=== PATIENT | male | born 1990 | race American Indian/Alaskan Native ===

== ENCOUNTER 2018-05-25 14:26 | Emergency (ER) | payer OTHER ==
[2018-05-25] MEDS ORDERED: ASPIRIN PO ONE (14:46)
[2018-05-25 15:04] LABS: Basophils # (Auto) 0.1 K/mm3 (0.0-0.1); Basophils % (Auto) 0.7 % (0.0-1.8); Eosinophils % (Auto) 0.2 % (0.0-4.3); Hematocrit 47.5 % (35.5-45.6); Hemoglobin 15.7 gm/dl (11.8-15.2); Lymphocytes # (Auto) 2.9 K/mm3 (1.2-5.4); Lymphocytes % (Auto) 27.7 % (13.4-35.0); Mean Corpuscular HGB Conc 33 % (32-34); Mean Corpuscular Hemoglobin 30 pg (28-32); Mean Corpuscular Volume 91 fl (84-94); Monocytes # (Auto) 0.9 K/mm3 (0.0-0.8); Monocytes % (Auto) 8.6 % (0.0-7.3); Platelet Count 219 K/mm3 (140-440); Red Blood Count 5.25 M/mm3 (3.65-5.03); Red Cell Distribution Width 14.3 % (13.2-15.2)
[2018-05-25 15:24] LABS: BUN/Creatinine Ratio 12; Blood Urea Nitrogen 14 mg/dL (9-20); Calcium 9.7 mg/dL (8.4-10.2); Hemolysis Index 43
[2018-05-25] MEDS ORDERED: TYLENOL PO ONE (17:17)
[2018-05-25] MEDS ORDERED: K-DUR PO ONE (17:17)
[2018-05-25] MEDS ORDERED: PEPCID IV ONE (17:17)
[2018-05-25] MEDS ORDERED: ALUM-MAG HYDROX-SIMETH 200-200-20MG/5ML PO ONE (17:17)
--- NOTE | 2018-05-25 17:18 | Emergency Department Report ---
ED General Adult HPI - General Chief complaint: Chest Pain Stated complaint: CHEST PAIN Time Seen by Provider: 05/25/18 17:07 Source: patient, family, EMS (ems notes not available at time of chart dictation), RN notes reviewed, old records reviewed Mode of arrival: Stretcher Limitations: No Limitations - History of Present Illness Initial comments: This is a 27-year-old gentleman who is not known to this provider previously. His past medical history includes hypertension, obesity, reported congestive heart failure (no documented ejection fraction) presumed Nyla-High tear, and asthma as well as cannabis abuse. The patient presents to the ER with a complaint of abdominal cramping and chest pain. His symptoms started at around 11:00 this morning. The abdominal cramping is in the bilateral lower quadrants and radiates up to the epigastric region. The epigastric pain does not radiate to the back, arms or neck. There is no diaphoresis. There is chronic shortness of breath. He denies leg pain, leg swelling, hematemesis, testicular pain, bright red blood per rectum, the patient also denies DVT, pulmonary embolus risk factors. He's had intermittent aspirin over the past week, but no cocaine, and indicates his consumption. he does not feel like he is constipated. He does not recall the name of his primary chicken picker. -: Gradual, hour(s) Location: chest, abdomen Radiation: abdomen Severity scale (0 -10): 8 Quality: aching Consistency: intermittent Improves with: none Worsens with: none Associated Symptoms: chest pain, malaise, shortness of breath, weakness. denies : confusion, cough, diaphoresis, fever/chills, headaches, loss of appetite, nausea/vomiting, rash, seizure, syncope - Related Data Previous Rx's Medication Instructions Recorded Last Taken Type ALBUTEROL Inhaler [ProAir HFA 2 puff IH QID PRN #1 inhalation 03/26/16 Unknown Rx Inhaler] Albuterol *Only Ed* [Proventil 2.5 mg IH QIDRT PRN #30 nebu 03/26/16 Unknown Rx 0.5% NEBS] Furosemide [Lasix TAB] 40 mg PO QDAY #30 tablet 03/26/16 Unknown Rx Acetaminophen [Tylenol Arthritis] 650 mg PO Q6HR PRN #30 tablet.er 05/25/18 Unknown Rx Albuterol Sulfate [Proair 90 mcg IH Q4HR PRN #2 aer.pow.ba 05/25/18 Unknown Rx Respiclick] Benzonatate [Tessalon Perles] 100 mg PO Q8HR PRN #30 capsule 05/25/18 Unknown Rx Ibuprofen [Motrin] 600 mg PO Q8H PRN #30 tablet 05/25/18 Unknown Rx Levofloxacin [Levaquin] 750 mg PO QDAY #6 tablet 05/25/18 Unknown Rx Metoclopramide [Reglan] 10 mg PO QID PRN #20 tab 05/25/18 Unknown Rx Allergies Allergy/AdvReac Type Severity Reaction Status Date / Time No Known Allergies Allergy Unverified 03/23/16 10:49 ED Review of Systems ROS: Stated complaint: CHEST PAIN Other details as noted in HPI Comment: All other systems reviewed and negative ED Past Medical Hx - Past Medical History Hx Hypertension: Yes Hx Heart Attack/AMI: No Hx Congestive Heart Failure: Yes Hx Diabetes: No Hx Deep Vein Thrombosis: No Hx Pulmonary Embolism: No Hx Asthma: Yes Hx COPD: No Hx Tuberculosis: No Hx HIV: No - Surgical History Hx Coronary Stent: No Hx Pacemaker: No Hx Internal Defibrillator: No - Social History Smoking Status: Never Smoker Substance Use Type: None - Medications Home Medications: Home Medications Medication Instructions Recorded Confirmed Last Taken Type ALBUTEROL Inhaler [ProAir HFA 2 puff IH QID PRN #1 inhalation 03/26/16 05/25/18 Unknown Rx Inhaler] Albuterol *Only Ed* [Proventil 2.5 mg IH QIDRT PRN #30 nebu 03/26/16 05/25/18 Unknown Rx 0.5% NEBS] Furosemide [Lasix TAB] 40 mg PO QDAY #30 tablet 03/26/16 05/25/18 Unknown Rx Acetaminophen [Tylenol Arthritis] 650 mg PO Q6HR PRN #30 tablet.er 05/25/18 Unknown Rx Albuterol Sulfate [Proair 90 mcg IH Q4HR PRN #2 aer.pow.ba 05/25/18 Unknown Rx Respiclick] Benzonatate [Tessalon Perles] 100 mg PO Q8HR PRN #30 capsule 05/25/18 Unknown Rx Ibuprofen [Motrin] 600 mg PO Q8H PRN #30 tablet 08/09/18 Unknown Rx Levofloxacin [Levaquin] 750 mg PO QDAY #6 tablet 05/25/18 Unknown Rx Metoclopramide [Reglan] 10 mg PO QID PRN #20 tab 05/25/18 Unknown Rx ED Physical Exam - General Limitations: No Limitations General appearance: alert, in no apparent distress, obese - Head Head exam: Present: atraumatic, normocephalic - Eye Eye exam: Present: normal appearance, EOMI. Absent: nystagmus - ENT ENT exam: Present: normal exam, normal orophraynx, mucous membranes moist, normal external ear exam - Neck Neck exam: Present: normal inspection, full ROM - Respiratory Respiratory exam: Present: normal lung sounds bilaterally. Absent: respiratory distress, chest wall tenderness - Cardiovascular Cardiovascular Exam: Present: regular rate, normal rhythm, normal heart sounds. Absent: systolic murmur, diastolic murmur, rubs, gallop - GI/Abdominal GI/Abdominal exam: Present: soft, normal bowel sounds. Absent: distended, tenderness, guarding, rebound, rigid - Rectal Rectal exam: Present: deferred - exam: Present: normal inspection, other (there is no testicular tenderness. There is normal testicular lie bilaterally. There is normal cremasteric reflex bilaterally.). Absent: testicular tenderness, scrotal swelling External exam: Present: normal external exam, other (escorted by nurse Sandra Gillette) - Extremities Exam Extremities exam: Present: normal inspection, full ROM, normal capillary refill , other (2+ pulses noted in the bilateral upper, lower extremities. Compartments soft. No long bony tenderness. The pelvis is stable.). Absent: tenderness, pedal edema, joint swelling, calf tenderness - Back Exam Back exam: Present: normal inspection, full ROM. Absent: tenderness, CVA tenderness (R), paraspinal tenderness, vertebral tenderness - Neurological Exam Neurological exam: Present: alert, oriented X3, CN II-XII intact, other ( Extraocular movements intact. Tongue midline. No facial droop. Facial sensation intact to light touch in the V1, V2, V3 distribution bilaterally. 5 and 5 strength in 4 extremities.. Sensation is intact to light touch in 4 extremities.). Absent: motor sensory deficit - Psychiatric Psychiatric exam: Present: anxious - Skin Skin exam: Present: warm, dry, intact, normal color. Absent: rash ED Course Vital Signs 05/25/18 05/25/18 05/25/18 14:37 14:41 15:00 Temperature 99.9 F H Pulse Rate 88 97 H 102 H Respiratory 24 16 16 Rate Blood Pressure 125/71 125/71 125/71 Blood Pressure [Left] O2 Sat by Pulse 97 95 92 Oximetry 05/25/18 05/25/18 05/25/18 15:30 16:00 16:30 Temperature Pulse Rate 96 H 93 H 90 Respiratory 22 19 18 Rate Blood Pressure 121/80 125/71 129/82 Blood Pressure [Left] O2 Sat by Pulse 97 98 99 Oximetry 05/25/18 05/25/18 05/25/18 17:00 18:27 19:15 Temperature 97.4 F L Pulse Rate 89 87 Respiratory 14 12 12 Rate Blood Pressure 129/82 Blood Pressure 119/73 [Left] O2 Sat by Pulse 98 98 Oximetry 05/25/18 05/25/18 19:51 21:00 Temperature Pulse Rate 98 H Respiratory 12 12 Rate Blood Pressure 120/77 Blood Pressure [Left] O2 Sat by Pulse 97 Oximetry - Reevaluation(s) Reevaluation #1: 05/25/18 18:35 Differential diagnosis, including but not limited to: Acute coronary syndrome, pneumonia, pulmonary embolus, GERD, gastritis, hiatal hernia, intra-abdominal infection, constipation, narcotic bowel syndrome, cyclic vomiting syndrome Assessment and plan: 27-year-old gentleman who complains of abdominal pain and chest pain. Low risk by MEAGAN score, low risk by heart score, no pulmonary emesis or DVT risk factors, low risk by well's criteria, with a negative d- dimer. Objectively speaking his physical exam is unremarkable, his EKG is unchanged 2, troponin negative 2, x-ray of the chest is negative, and d-dimer is negative. Patient at low risk for major adverse cardiac event. He also has a documented history of cannabis abuse as well as narcotic dependence. The patient will be treated with nonnarcotic pain medication, and we will obtain a CT scan of the abdomen and pelvis. Urinalysis is pending at this time as well Reevaluation #2: 05/25/18 20:06 Troponin is negative 2. EKG unchanged 2. D-dimer is negative. Patient is hemodynamically stable without significant hypoxia. He has been observed in the ER for hours without clinical decompensation. CT scan of the abdomen and pelvis shows the following pertinent findings: Patchy areas of pulmonary consolidation in both lung bases most suggestive of pulmonary infiltrates. Pneumonia needs to be considered. The patient is from the community and is therefore suitable for a trial of outpatient antibiotic therapy. He will be discharged with nausea medication, as needed albuterol therapy, appropriate pain medication, and appropriate antibiotic therapy. The patient is medically suitable for discharge at this point in time. 05/25/18 20:07 Reevaluation #3: 05/26/18 01:47 The patient was given an incentive spirometer, and chest physiotherapy was discussed with the family and respiratory therapy give the patient and family instructions on how to perform physiotherapy as well as how to best use the incentive spirometer ED Medical Decision Making - Lab Data Result diagrams: 05/25/18 14:57 05/25/18 14:57 Vital Signs 05/25/18 05/25/18 05/25/18 14:37 14:41 15:00 Temperature 99.9 F H Pulse Rate 88 97 H 102 H Respiratory 24 16 16 Rate Blood Pressure 125/71 125/71 125/71 O2 Sat by Pulse 97 95 92 Oximetry 05/25/18 05/25/18 05/25/18 15:30 16:00 16:30 Temperature Pulse Rate 96 H 93 H 90 Respiratory 22 19 18 Rate Blood Pressure 121/80 125/71 129/82 O2 Sat by Pulse 97 98 99 Oximetry 05/25/18 17:00 Temperature Pulse Rate 89 Respiratory 14 Rate Blood Pressure 129/82 O2 Sat by Pulse 98 Oximetry Lab Results 05/25/18 05/25/18 05/25/18 Range/Units 14:57 14:57 14:57 WBC 10.4 (4.5-11.0) K/mm3 RBC 5.25 H (3.65-5.03) M/mm3 Hgb 15.7 H (11.8-15.2) gm/dl Hct 47.5 H (35.5-45.6) % MCV 91 (84-94) fl MCH 30 (28-32) pg MCHC 33 (32-34) % RDW 14.3 (13.2-15.2) % Plt Count 219 (140-440) K/mm3 Lymph % (Auto) 27.7 (13.4-35.0) % [place] % (Auto) 8.6 H (0.0-7.3) % Eos % (Auto) 0.2 (0.0-4.3) % Baso % (Auto) 0.7 (0.0-1.8) % Lymph # 2.9 (1.2-5.4) K/mm3 [place] # 0.9 H (0.0-0.8) K/mm3 Eos # 0.0 (0.0-0.4) K/mm3 Baso # 0.1 (0.0-0.1) K/mm3 Seg Neutrophils % 62.8 (40.0-70.0) % Seg Neutrophils # 6.5 (1.8-7.7) K/mm3 PT (12.2-14.9) Sec. INR (0.87-1.13) D-Dimer (0-234) ng/mlDDU Sodium 137 (137-145) mmol/L Potassium 3.3 L (3.6-5.0) mmol/L Chloride 96.2 L (98-107) mmol/L Carbon Dioxide 20 L (22-30) mmol/L Anion Gap 24 mmol/L BUN 14 (9-20) mg/dL Creatinine 1.2 (0.8-1.5) mg/dL Estimated GFR > 60 ml/min BUN/Creatinine Ratio 12 % Glucose 136 H (75-100) mg/dL Calcium 9.7 (8.4-10.2) mg/dL Magnesium (1.7-2.3) mg/dL Troponin T < 0.010 (0.00-0.029) ng/mL NT-Pro-B Natriuret Pep 17.70 (0-450) pg/mL Lipase (13-60) units/L 05/25/18 05/25/18 05/25/18 Range/Units 16:57 17:38 17:38 WBC (4.5-11.0) K/mm3 RBC (3.65-5.03) M/mm3 Hgb (11.8-15.2) gm/dl Hct (35.5-45.6) % MCV (84-94) fl MCH (28-32) pg MCHC (32-34) % RDW (13.2-15.2) % Plt Count (140-440) K/mm3 Lymph % (Auto) (13.4-35.0) % [place] % (Auto) (0.0-7.3) % Eos % (Auto) (0.0-4.3) % Baso % (Auto) (0.0-1.8) % Lymph # (1.2-5.4) K/mm3 [place] # (0.0-0.8) K/mm3 Eos # (0.0-0.4) K/mm3 Baso # (0.0-0.1) K/mm3 Seg Neutrophils % (40.0-70.0) % Seg Neutrophils # (1.8-7.7) K/mm3 PT 12.9 (12.2-14.9) Sec. INR 0.93 (0.87-1.13) D-Dimer 142.05 (0-234) ng/mlDDU Sodium (137-145) mmol/L Potassium (3.6-5.0) mmol/L Chloride (98-107) mmol/L Carbon Dioxide (22-30) mmol/L Anion Gap mmol/L BUN (9-20) mg/dL Creatinine (0.8-1.5) mg/dL Estimated GFR ml/min BUN/Creatinine Ratio % Glucose (75-100) mg/dL Calcium (8.4-10.2) mg/dL Magnesium 1.90 (1.7-2.3) mg/dL Troponin T (0.00-0.029) ng/mL NT-Pro-B Natriuret Pep (0-450) pg/mL Lipase 15 (13-60) units/L 05/25/18 Range/Units 17:38 WBC (4.5-11.0) K/mm3 RBC (3.65-5.03) M/mm3 Hgb (11.8-15.2) gm/dl Hct (35.5-45.6) % MCV (84-94) fl MCH (28-32) pg MCHC (32-34) % RDW (13.2-15.2) % Plt Count (140-440) K/mm3 Lymph % (Auto) (13.4-35.0) % [place] % (Auto) (0.0-7.3) % Eos % (Auto) (0.0-4.3) % Baso % (Auto) (0.0-1.8) % Lymph # (1.2-5.4) K/mm3 [place] # (0.0-0.8) K/mm3 Eos # (0.0-0.4) K/mm3 Baso # (0.0-0.1) K/mm3 Seg Neutrophils % (40.0-70.0) % Seg Neutrophils # (1.8-7.7) K/mm3 PT (12.2-14.9) Sec. INR (0.87-1.13) D-Dimer (0-234) ng/mlDDU Sodium (137-145) mmol/L Potassium (3.6-5.0) mmol/L Chloride (98-107) mmol/L Carbon Dioxide (22-30) mmol/L Anion Gap mmol/L BUN (9-20) mg/dL Creatinine (0.8-1.5) mg/dL Estimated GFR ml/min BUN/Creatinine Ratio % Glucose (75-100) mg/dL Calcium (8.4-10.2) mg/dL Magnesium (1.7-2.3) mg/dL Troponin T < 0.010 (0.00-0.029) ng/mL NT-Pro-B Natriuret Pep (0-450) pg/mL Lipase (13-60) units/L - EKG Data -: EKG Interpreted by Sc EKG shows normal: sinus rhythm Rate: normal - EKG Data 05/25/18 18:37 EKG #1 demonstrates sinus tachycardia, 105 bpm, normal axis, normal intervals, motion artifact, atrial enlargement. EKG #2 shows normal sinus, 76 bpm, normal axis, normal intervals. Neither EKG is consistent with a STEMI. - Radiology Data Radiology results: report reviewed, image reviewed X-ray of the chest is negative for acute disease Print Report Referring Physician: BROOKS NASCIMENTO Patient Name: TRICIA MCCORMACK Date of : 1990 Sex: Male Report Date: 2018-05-25 Report Status: Finalized Findings [facility] [address] [place] [address] Cat Scan Report Signed Patient: TRICIA MCCORMACK MR#: [id number] : 1990 Acct:[id number] Age/Sex: 27 / M ADM Date: 05/25/18 Loc: ED Attending Dr: Ordering Physician: BROOKS NASCIMENTO MD Date of Service: 05/25/18 Procedure(s): CT abdomen pelvis w con Accession Number(s): [id number] cc: BROOKS NASCIMENTO MD FINAL REPORT EXAM: CT ABDOMEN PELVIS W CON HISTORY: abd pain TECHNIQUE: Following IV administration of 100 cc of Omnipaque 350 axial helical imaging was performed through the abdomen and pelvis with sagittal and coronal reformatted images obtained. Delayed axial helical imaging was also performed through the abdomen and pelvis. Comparison: Chest x-ray also performed today FINDINGS: Visualization detail in portions of the abdomen and pelvis is limited by artifact created by large body habitus. There are patchy areas of pulmonary consolidation in both lung bases most suggestive of pulmonary infiltrates. The heart appears to be normal size. The liver, kidneys, pancreas and adrenal glands are unremarkable in appearance. The spleen appears to be slightly heterogeneous. Whether not this is real or artifact is unclear. The gallbladder is moderately distended and unremarkable in appearance. The bowel is normal caliber. The appendix is normal caliber. There is no evidence of pneumoperitoneum or free fluid. The abdominal aorta is normal caliber. There is no evidence of pathologic intra-abdominal adenopathy by CT size criteria. The urinary bladder is decompressed which limits evaluation. The prostate gland is normal size. The bony structures are notable for spondylitic change in the lower lumbar spine. Visualization detail the contents of the lower lumbar spine is limited by artifact. IMPRESSION: 1. Patchy areas of pulmonary consolidation in both lung bases most suggestive of pulmonary infiltrates. Pneumonia needs to be considered. 2. Slightly heterogeneous appearance of the spleen. Real versus artifact created by large body habitus. 3. Otherwise no definite evidence of an acute intra-abdominal process. 4. Spondylitic change lower lumbar spine. Transcribed By: ED Dictated By: CHERI CALLAHAN MD Electronically Authenticated By: CHERI CALLAHAN MD Signed Date/Time: 05/25/181950 Critical care attestation.: If time is entered above; I have spent that time in minutes in the direct care of this critically ill patient, excluding procedure time. ED Disposition Clinical Impression: Pleuritic chest pain Disposition: DC-01 TO HOME OR SELFCARE Is pt being admited?: No Does the pt Need Aspirin: No Condition: Good Instructions: Pneumonia (ED) Additional Instructions: Take the pain medication, nausea medication breathing medication as needed/ directed. Take the antibiotic therapy as directed. Return in 2-3 days and follow up with your primary care doctor in 2-3 days for repeat checkup/ evaluation. Follow up with a chicken picker within the next 7-10 days. Return to the ER right away with new pain, worsened pain, migration of pain, fevers, chills, lethargy, irritability, projectile vomiting, change in mental status, confusion, inability to tolerate liquid feeds. Make certain to get up at least once per hour and walk around, and make certain to take deep breaths as we have discussed. Prescriptions: Acetaminophen [Tylenol Arthritis] 650 mg PO Q6HR PRN #30 tablet.er PRN Reason: Pain Albuterol Sulfate [Proair Respiclick] 90 mcg IH Q4HR PRN #2 aer.pow.ba PRN Reason: Wheezing Benzonatate [Tessalon Perles] 100 mg PO Q8HR PRN #30 capsule PRN Reason: Cough Ibuprofen [Motrin] 600 mg PO Q8H PRN #30 tablet PRN Reason: Pain Levofloxacin [Levaquin] 750 mg PO QDAY #6 tablet Metoclopramide [Reglan] 10 mg PO QID PRN #20 tab PRN Reason: Nausea Referrals: PRIMARY CARE, [Primary Care Provider] - 3-[address] [facility] [Provider Group] - 3-5 Days [facility] [Provider Group] - 3-[address] [facility] [Provider Group] - 3-5 Days
[2018-05-25 18:17] LABS: INR 0.93 (0.87-1.13)
--- NOTE | 2018-05-25 18:27 | XRay Report ---
FINAL REPORT EXAM: XR CHEST 1V AP HISTORY: cp TECHNIQUE: Frontal portable examination of the chest PRIORS: None FINDINGS: Limited examination due to prominent soft tissue attenuation. Bilateral lung bases partly obscured. Left CP angle not included also limiting the examination. There is no visible pulmonary consolidation, pleural effusion, or pneumothorax. Cardiac silhouette size is normal without vascular congestion. No visible acute displaced fracture in the regional skeleton. IMPRESSION: No acute cardiopulmonary disease in the visualized chest, with above described limitations
[2018-05-25 19:29] LABS: Bilirubin,Urine NEG (Negative); Blood,Urine NEG (Negative); Color,Urine Yellow (Yellow); Mucus,Urine 2+ /HPF
[2018-05-25] MEDS ORDERED: TORADOL IV ONE (19:39)
[2018-05-25 19:55] LABS: Amphetamine Screen,Urine PRESUMPTIVE NEGATIVE; Benzodiazepines Screen,Urine PRESUMPTIVE NEGATIVE; Cocaine Screen,Urine PRESUMPTIVE NEGATIVE; Methadone Screen,Urine PRESUMPTIVE NEGATIVE; Opiate Screen,Urine PRESUMPTIVE NEGATIVE
--- NOTE | 2018-05-25 19:58 | Cat Scan Report ---
FINAL REPORT EXAM: CT ABDOMEN PELVIS W CON HISTORY: abd pain TECHNIQUE: Following IV administration of 100 cc of Omnipaque 350 axial helical imaging was performed through the abdomen and pelvis with sagittal and coronal reformatted images obtained. Delayed axial helical imaging was also performed through the abdomen and pelvis. Comparison: Chest x-ray also performed today FINDINGS: Visualization detail in portions of the abdomen and pelvis is limited by artifact created by large body habitus. There are patchy areas of pulmonary consolidation in both lung bases most suggestive of pulmonary infiltrates. The heart appears to be normal size. The liver, kidneys, pancreas and adrenal glands are unremarkable in appearance. The spleen appears to be slightly heterogeneous. Whether not this is real or artifact is unclear. The gallbladder is moderately distended and unremarkable in appearance. The bowel is normal caliber. The appendix is normal caliber. There is no evidence of pneumoperitoneum or free fluid. The abdominal aorta is normal caliber. There is no evidence of pathologic intra-abdominal adenopathy by CT size criteria. The urinary bladder is decompressed which limits evaluation. The prostate gland is normal size. The bony structures are notable for spondylitic change in the lower lumbar spine. Visualization detail the contents of the lower lumbar spine is limited by artifact. IMPRESSION: 1. Patchy areas of pulmonary consolidation in both lung bases most suggestive of pulmonary infiltrates. Pneumonia needs to be considered. 2. Slightly heterogeneous appearance of the spleen. Real versus artifact created by large body habitus. 3. Otherwise no definite evidence of an acute intra-abdominal process. 4. Spondylitic change lower lumbar spine.
[2018-05-25 20:08] LABS: Cannabinoid Screen,Urine PRESUMPTIVE POSITIVE
[2018-05-25] MEDS ORDERED: LEVAQUIN 750MG/150ML 750 MG/150 ML BAG IV ONE (20:08)
[2018-05-25 21:14] VITALS: BP 120/77
== END 2018-05-25 22:22 | disposition home or self-care (01) ==
LOC: ED 14:26
DX: R07.89 Other chest pain (principal); R10.9 Unspecified abdominal pain; I11.0 Hypertensive heart disease with heart failure; I50.9 Heart failure, unspecified; J45.909 Unspecified asthma, uncomplicated
CPT/HCPCS: 36415; 71045; 74177; 80048; 80307; 81001; 83690; 83735; 83880; 84484; 85025; 85379; 85610; 93005; 93010; 96365; 96366; 96375; 99285; J1885; J1956; Q9967